=== PATIENT | female | born 1980 | race African-American/Black ===

== ENCOUNTER 2017-07-14 07:58 | Emergency (ER) | payer OTHER ==
[2017-07-14] MEDS ORDERED: Bacitracin Zinc Ointment 30 gm TUBE ONE (08:16)
[2017-07-14] MEDS ORDERED: Adacel (T-DAP) 0.5 ML VIAL ONE ×2 (08:16→08:19)
[2017-07-14] MEDS ORDERED: Bacitracin Zinc 1 Packet ONE (08:19)
== END 2017-07-14 08:28 | disposition home or self-care (01) ==
LOC: SCSER 07:58
DX: S61.217A Laceration without foreign body of left little finger without damage to nail, initial encounter (principal); M06.9 Rheumatoid arthritis, unspecified; M45.9 Ankylosing spondylitis of unspecified sites in spine; F17.200 Nicotine dependence, unspecified, uncomplicated; Z23 Encounter for immunization; W27.2XXA Contact with scissors, initial encounter
CPT/HCPCS: 90471; 90715

== ENCOUNTER 2017-08-24 04:40 | Emergency (ER) | payer OTHER ==
[2017-08-24] MEDS ORDERED: Ondansetron HCl/PF 4 MG/2 ML Vial ONE (05:13)
[2017-08-24] MEDS ORDERED: Dicyclomine 20 MG TAB ONE (05:53)
[2017-08-24 06:02] LABS: #Basophils 0.1 thou/uL (0.0-0.2); #Eosinphils 0.2 thou/uL (0.0-0.7); #Monocytes 0.4 thou/uL (0.11-0.59); #Neutrophils 3.4 thou/uL (1.40-6.50); %Basophils 2.8 % (0.0-1.0); %Eosinophils 4.5 % (0.0-10.0); %Lymphocytes 19.9 % (21.0-51.0); %Monocytes 7.6 % (0.0-10.0); %Neutrophils 65.2 % (42.0-75.0); Hemoglobin 13.6 g/dL (12.0-16.0); Mean Corpuscular HGB CONC 33.8 g/dL (32.0-36.0); Mean Corpuscular Volume 97.6 fl (81.0-99.0); Mean Platelet Volume 6.3 fL (7.4-10.4); Platelet Count 258 thou/uL (130-400); RBC Distribution Width 11.1 % (11.5-14.5); Red Blood Cell (RBC) Count 4.11 mill/uL (4.20-5.40); White Blood Cell (WBC) Count 5.2 thou/uL (4.8-10.8)
[2017-08-24 06:04] LABS: ALT (SGPT) 11 U/L (8-55); AST (SGOT) 16 U/L (5-34); Albumin 4.1 g/dL (3.5-5.0); Alkaline Phosphatase 63 U/L (40-150); Anion Gap 14 mmol/L (10-20); BUN (Urea Nitrogen) 9 mg/dL (7.0-18.7); Bilirubin, Total 0.5 mg/dL (0.2-1.2); Calc. Creatinine Clearance 0 mL/min (70-130); Calcium 9.4 mg/dL (7.8-10.44); Carbon Dioxide 23 mmol/L (22-29); Chloride 106 mmol/L (98-107); Estimated GFR-MDRD Greater than 90; Globulin 3.1 g/dL (2.4-3.5); Glucose 99 mg/dL (70-105); Lipase 8 U/L (8-78); Potassium 3.6 mmol/L (3.5-5.1); Protein, Total 7.2 g/dL (6.0-8.3); Sodium 139 mmol/L (136-145)
== END 2017-08-24 06:54 | disposition home or self-care (01) ==
LOC: SCSER 04:40
DX: R11.2 Nausea with vomiting, unspecified (principal); R19.7 Diarrhea, unspecified; F17.210 Nicotine dependence, cigarettes, uncomplicated
CPT/HCPCS: 80053; 83690; 85025; 96361; 96374; J2405

== ENCOUNTER 2017-09-03 10:06 | Emergency (ER) | payer OTHER ==
[2017-09-03 10:22] LABS: Bilirubin Negative (Negative); Blood, Urine Negative (Negative); Clarity Clear (Clear); Glucose, Urine (Dipstick) Negative (Negative); Leukocyte Negative (Negative); Nitrite Negative (Negative); Protein, Urine (Dipstick) Negative (Neg-Trace); Urobilinogen 0.2 mg/dL (0.2-1.0)
[2017-09-03] MEDS ORDERED: Ketorolac Tromethamine 60 MG/2 ML VIAL ONE (10:53)
== END 2017-09-03 10:55 | disposition home or self-care (01) ==
LOC: SCSER 10:06
DX: M45.6 Ankylosing spondylitis lumbar region (principal); M19.90 Unspecified osteoarthritis, unspecified site; M06.9 Rheumatoid arthritis, unspecified; F17.290 Nicotine dependence, other tobacco product, uncomplicated
CPT/HCPCS: 81003; 96372; 99406; J1885

== ENCOUNTER 2018-01-18 22:10 | Emergency (ER) | payer OTHER ==
[2018-01-18] MEDS ORDERED: Amoxicillin/Potassium Clav 875 MG TAB ONE (22:42)
[2018-01-18 23:11] LABS: ALT (SGPT) 6 U/L (8-55); AST (SGOT) 12 U/L (5-34); Albumin 3.8 g/dL (3.5-5.0); Alkaline Phosphatase 50 U/L (40-150); Anion Gap 12 mmol/L (10-20); BHCG - Serum Negative (NEGATIVE); BUN (Urea Nitrogen) 8 mg/dL (7.0-18.7); Bilirubin, Total 0.2 mg/dL (0.2-1.2); Calc. Creatinine Clearance 0 mL/min (70-130); Calcium 9.1 mg/dL (7.8-10.44); Carbon Dioxide 25 mmol/L (22-29); Chloride 104 mmol/L (98-107); Estimated GFR-MDRD Greater than 90; Globulin 2.6 g/dL (2.4-3.5); Glucose 86 mg/dL (70-105); Potassium 3.8 mmol/L (3.5-5.1); Protein, Total 6.4 g/dL (6.0-8.3); Sodium 137 mmol/L (136-145)
[2018-01-18 23:12] LABS: Pregs Control Background? CLEAR/WHITE (CLR/WHITE); Pregs Control Bar Appear? YES (CONTROL BAR)
[2018-01-18 23:22] LABS: Band 2 % (5-11); Eosinophils 8 % (0-10); Lymphocytes 42 % (21-51); MDiff Complete? YES; Mean Corpuscular HGB CONC 36.4 g/dL (32.0-36.0); Mean Corpuscular Volume 96.3 fl (81.0-99.0); Mean Platelet Volume 5.9 fL (7.4-10.4); Monocytes 3 % (0-10); Neutrophil 44 % (42-75); Platelet Count 254 thou/uL (130-400); RBC Distribution Width 11.3 % (11.5-14.5); Reactive Lymphocytes 1 % (0-10); Red Blood Cell (RBC) Count 3.72 mill/uL (4.20-5.40)
[2018-01-18] MEDS ORDERED: Ketorolac Tromethamine 30 MG/ML VIAL ONE (23:47)
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
[2018-01-19] MEDS ORDERED: Bacitracin Zinc 1 Packet ONE (00:57)
== END 2018-01-19 01:16 | disposition home or self-care (01) ==
LOC: SCSER 22:10
DX: S61.412A Laceration without foreign body of left hand, initial encounter (principal); S61.512A Laceration without foreign body of left wrist, initial encounter; M19.90 Unspecified osteoarthritis, unspecified site; M06.9 Rheumatoid arthritis, unspecified; F17.290 Nicotine dependence, other tobacco product, uncomplicated; W26.0XXA Contact with knife, initial encounter
CPT/HCPCS: 80053; 84703; 85025; 96374; J1885

== ENCOUNTER 2018-04-16 10:59 | Emergency (ER) | payer OTHER, SELFPAY ==
[2018-04-16] MEDS ORDERED: Ketorolac Tromethamine 30 MG/ML VIAL ONE (11:50)
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
== END 2018-04-16 12:14 | disposition home or self-care (01) ==
LOC: SCSER 10:59
DX: M54.2 Cervicalgia (principal); M54.5 Low back pain; F41.9 Anxiety disorder, unspecified; F31.9 Bipolar disorder, unspecified; F17.290 Nicotine dependence, other tobacco product, uncomplicated; V89.2XXA Person injured in unspecified motor-vehicle accident, traffic, initial encounter
CPT/HCPCS: 70450; 71046; 72100; 72125; 96372; J1885

== ENCOUNTER 2018-05-10 22:21 | Emergency (ER) | payer BC, OTHER, SELFPAY ==
[2018-05-10] MEDS ORDERED: Acetaminophen 500 MG TAB ONE (22:44)
--- NOTE | 2018-05-10 23:23 | RAD ---
PELVIS ONE VIEW: HISTORY: Hip pain. COMPARISON: None. FINDINGS: There are extensive fusion changes of the lumbosacral spine with right SI joint fusion. 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 No acute fracture or malalignment. IMPRESSION: Chronic changes. POS: [facility]
--- NOTE | 2018-05-10 23:25 | RAD ---
RIGHT HIP TWO VIEWS: HISTORY: Pain. COMPARISON: None. FINDINGS: Right SI joint fusion hardware. No acute fracture or malalignment. Degenerative changes of the pubi c symphysis. IMPRESSION: 1. No acute fracture or malalignment. 2. Headless screws through the S1 vertebra with possible removal of prior hardware. POS: [facility]
== END 2018-05-10 23:24 | disposition home or self-care (01) ==
LOC: SCSER 22:21
DX: M25.551 Pain in right hip (principal); M19.90 Unspecified osteoarthritis, unspecified site; F31.9 Bipolar disorder, unspecified; F41.9 Anxiety disorder, unspecified; Z76.5 Malingerer [conscious simulation]
CPT/HCPCS: 72170